=== PATIENT | male | born 1965 | race Caucasian/White ===

== ENCOUNTER → 2017-11-12 | Day surgery (SDC) | payer OTHER ==
[~2017-11-12] MED LIST: LIDOCAINE 1% PF 2 ML VIAL. ID; LIDOCAINE 2% 100 MG/5 ML SYRINGE.; MIDAZOLAM HCL/PF 2 MG/2 ML VIAL. IV; PROPOFOL 0 ML IV; PROPOFOL 20 ML IV; fentaNYL PF VIAL 100 MCG/2 ML VIAL IV
[2017-11-12] MEDS: IV RINGERS,LACTATED 1000ML 1,000 ML IV (09:53)
== END | disposition home or self-care (01) ==
LOC: SURG 09:02
DX: K21.0 Gastro-esophageal reflux disease with esophagitis (principal); K44.9 Diaphragmatic hernia without obstruction or gangrene; K29.50 Unspecified chronic gastritis without bleeding
CPT/HCPCS: 43239; 88305; J2704

== ENCOUNTER 2018-05-11 07:14 | Inpatient (IN) | payer OTHER ==
[~2018-05-11] VITALS: Ht 193 cm; Wt 117.9 kg
[2018-05-11] VITALS (8 sets, daily range): BP systolic 148–166; BP diastolic 75–99
[~2018-05-11 07:14] MED LIST changes: +BUPIVAC MPF-EPI 0.5%-1:200000 30 ML VIAL. ONE; +HYDROmorphone 2 MG/ML VIAL IV PRN; -LIDOCAINE 1% PF 2 ML VIAL. ID; +LIDOCAINE 1% PF 2 ML VIAL. ID PRN; -LIDOCAINE 2% 100 MG/5 ML SYRINGE.; -MIDAZOLAM HCL/PF 2 MG/2 ML VIAL. IV; +ONDANSETRON PF 4 MG/2 ML VIAL. IV PRN; +PANT20TA2 PO; +PROCHLORPERAZINE 10 MG/2 ML VIAL. IV PRN; -PROPOFOL 0 ML IV; -PROPOFOL 20 ML IV; +SURGICEL HEMOSTAT 4X8 EACH. ONE; -fentaNYL PF VIAL 100 MCG/2 ML VIAL IV; +fentaNYL PF VIAL 100 MCG/2 ML VIAL IV PRN
[2018-05-11] MEDS ORDERED: fentaNYL PF VIAL 100 MCG/2 ML VIAL ONE ×2 (07:45→09:06)
[2018-05-11] MEDS ORDERED: ROCURONIUM 50 MG/5 ML VIAL. ONE ×2 (07:45→09:06)
[2018-05-11] MEDS ORDERED: SUCCINYLCHOLINE 200 MG/10 ML VIAL. ONE (07:45)
[2018-05-11] MEDS ORDERED: PROPOFOL 0 ML IV ONE (07:45)
[2018-05-11] MEDS: IV RINGERS,LACTATED 1000ML 1,000 ML IV SCH ×2 (07:56→12:08)
[2018-05-11] MEDS ORDERED: DEXAMETHASONE SOD PHOS 20 MG/5 ML VIAL. ONE (08:30)
[2018-05-11] MEDS ORDERED: DESFLURANE > 120 MINUTES IH ONE (08:30)
[2018-05-11] MEDS ORDERED: PROPOFOL 40 ML IV ONE (09:05)
[2018-05-11] MEDS ORDERED: ONDANSETRON PF 4 MG/2 ML VIAL. ONE (09:43)
[2018-05-11] MEDS ORDERED: GLYCOPYRROLATE 1 MG/5 ML VIAL. ONE (09:44)
[2018-05-11] MEDS ORDERED: NEOSTIGMINE METHYLSULFATE 5 MG/5 ML SYRINGE. ONE (09:44)
[2018-05-11] MEDS ORDERED: KETOROLAC 30 MG/ML INJ FOR OR. INJ ONE (11:24)
[2018-05-11] MEDS ORDERED: 0.9 % SODIUM CHLORIDE 10 ML DISP.SYRIN. IV PRN (12:00)
[2018-05-11] MEDS ORDERED: ONDANSETRON PF 4 MG/2 ML VIAL. IV PRN (12:00)
[2018-05-11] MEDS ORDERED: MORPHINE SULFATE 2 MG/ML VIAL. IV PRN ×5 (12:00→12:15)
--- NOTE | 2018-05-11 12:17 | PDOC4 ---
Operative Note Operative Note Operative Note Preoperative Diagnosis: Gastroesophageal reflux disease Postoperative Diagnosis: Gastroesophageal reflux disease, hiatal hernia Procedure: Laparoscopic Cory fundoplication with repair of hiatal hernia Surgeon: Jamel León.: Dr. Frost Anesthesia: Gen. Estimated Blood Loss: 20 mL Specimen: None Drains: None Complications: None Indications: The patient is a 52-year-old male who was referred with worsening symptomatic gastroesophageal reflux disease. He was referred for consideration of a surgical antireflux procedure. I discussed with him in detail a laparoscopic Cory fundoplication. The risks of surgery were discussed which include bleeding, infection, recurrent herniation, gastric or esophageal perforation, visceral injury, recurrent reflux, gas bloat syndrome, dysphasia, potential need for additional surgeries or procedures. She understands and would like to proceed. Description: The patient was taken to the operating room and placed supine on the operating table. General anesthesia was performed. The patient was then placed in lithotomy. The abdomen was prepped with ChloraPrep and draped in a standard surgical fashion. A small incision was made superior to and to the patient's left of the umbilicus through which a visualized 5 mm trocar was inserted. A pneumoperitoneum was then created and the laparoscope was introduced. In the right lateral abdomen a 12 mm trocar was inserted through which a soft fan retractor was used to elevate the left lobe of the liver. In the right upper quadrant a 5 mm trocar was inserted. In the left upper quadrant an 11 mm trocar was inserted while in the left lateral abdomen a 5 mm trocar was inserted. Attention was then directed to the diaphragmatic hiatus. There was a small hiatal hernia present. The pars flaccida was opened and the avascular plane and the dissection continued to the level of the diaphragm. The Harmonic scalpel assisted for much of this dissection. The right cindi was readily identified and we mobilized the border of the esophagus away from the cindi. We then continued this dissection anteriorly freeing up all attachments in this location. The dissection then continued along the left cindi and the sac and attachments were mobilized here as well. The gastrocolic omentum was then opened with the Harmonic scalpel in the upper portion of the greater curvature. We then freed up the upper part of the greater curvature and fundus using the harmonic scalpel. Large blood vessels were doubly clipped and divided. The dissection continued all the way back up to the left cindi and any remaining splenic attachments were also mobilized. A [place] drain was then placed around the esophagus at the GE junction and clips were applied holding the [place] in place. With retraction on the Lb we were able to continue freeing up any remaining attachments particularly in the posterior location. At this point the GE junction was well within the abdominal cavity. The left and right cindi were then reapproximated with interrupted 2-0 silk sutures using the Endo Stitch device. The fundus was then wrapped around in a 360 fashion creating the fundoplication. A shoeshine maneuver was used to ensure no twists or kinks. An initial 2-0 Ethibond suture was used securing the fundic lips together. Another suture was placed superior to this which incorporated a small bite of the anterior esophagus. An additional suture was then placed inferiorly completing the fundoplication. At this point hemostasis was good and the fundoplication was intact with a nice orientation. The 11 and 12 mm trochars were then removed and the fascia closed with 0 Vicryl using an Endo Close. The remaining ports were removed and the pneumoperitoneum was relieved. Skin at all incisions was closed with 4-0 Monocryl. Steri-Strips and dressings were applied. The patient tolerated the procedure well. EMILY ALCANTARA MD May 11, 2018 12:17
[2018-05-11] MEDS: fentaNYL PF VIAL 100 MCG/2 ML VIAL IV PRN ×2 (12:20→12:43)
[2018-05-11] MEDS: MORPHINE SULFATE 2 MG/ML VIAL. IV PRN ×2 (12:21→13:02)
[2018-05-11] MEDS: POTASSIUM CL 20MEQ-0.45% NACL 1,000 ML IV SCH ×2 (17:19→22:41)
[2018-05-11] MEDS: MORPHINE SULFATE 4 MG/ML VIAL. IV PRN ×2 (17:20→20:23)
[2018-05-12] MEDS: MORPHINE SULFATE 4 MG/ML VIAL. IV PRN (00:17)
[2018-05-12 03:00] VITALS: BP 129/72
[2018-05-12] MEDS: POTASSIUM CL 20MEQ-0.45% NACL 1,000 ML IV SCH (03:00)
[2018-05-12 07:15] VITALS: BP 131/76
[2018-05-12] MEDS ORDERED: HYDROcodon/APAP 7.5/325MG ORAL 15 ML SOLUTION PO PRN (08:00)
[2018-05-12 11:00] VITALS: BP_SYST 110; BP_SYST 126; BP_DIAS 65; BP_DIAS 72
--- NOTE | 2018-05-12 11:14 | PDOC ---
PROGRESS NOTES Subjective Subjective doing well, home liquids earlier this am, no dysphagia, no reflux present Objective Objective Vital Signs Date Time Temp Pulse Resp B/P (MAP) Pulse Ox O2 Delivery O2 Flow Rate FiO2 05/12/18 08:00 Room Air 05/12/18 07:15 97.9 72 18 131/76 (94) 95 97.9 05/11/18 14:45 2.0 Intake and Output 05/12/18 07:00 Intake Total 2889 ml Output Total 320 ml Balance 2569 ml IV Total 2889 ml Output Urine Total 300 ml Estimated Blood Loss 20 ml # Voids 4 Physical Exam Abdomen: Soft, No tenderness Assessment Assessment POD 1 lap gladys Plan Plan of Care doing well, advance to full liquids, hoping to go home Comment Review of Relevant I have reviewed the following items stefanie (where applicable) has been applied. Medications Current Medications Ondansetron HCl (Zofran) 4 mg PRN Q6HRS PRN IV NAUSEA/VOMITING; Start 05/11/18 at 07:00; Stop 05/12/18 at 06:59; Status DC Fentanyl Citrate (Fentanyl 2ml Vial) 25 mcg PRN Q5MIN PRN IV MILD PAIN; Start 05/11/18 at 07:00; Stop 05/12/18 at 06:59; Status DC Fentanyl Citrate (Fentanyl 2ml Vial) 50 mcg PRN Q5MIN PRN IV MODERATE TO SEVERE PAIN Last administered on 05/11/18at 12:43; Start 05/11/18 at 07:00; Stop 05/12/18 at 06:59; Status DC Morphine Sulfate (Morphine Sulfate) 1 mg PRN Q10MIN PRN IV SEVERE PAIN Last administered on 05/11/18at 13:02; Start 05/11/18 at 07:00; Stop 05/12/18 at 06:59 ; Status DC Ringer's Solution 1,000 ml @ 30 mls/hr Q24H IV Last administered on 05/11/18at 12:08; Start 05/11/18 at 07:00; Stop 05/11/18 at 18:59; Status DC Lidocaine HCl (Xylocaine-Mpf 1% 2ml Vial) 2 ml PRN 1X PRN ID IV START; Start 05/11/18 at 07:00; Stop 05/12/18 at 06:59; Status DC Hydromorphone HCl (Dilaudid) 0.5 mg PRN Q10MIN PRN IV SEV PAIN, Second choice; Start 05/11/18 at 07:00; Stop 05/12/18 at 06:59; Status DC Prochlorperazine Edisylate (Compazine) 5 mg PACU PRN PRN IV NAUSEA, MRX1 Last administered on 05/11/18at 12:17; Start 05/11/18 at 07:00; Stop 05/12/18 at 06:59 ; Status DC Cefazolin Sodium/ Dextrose 50 ml @ 100 mls/hr 1X ONCE IV Last administered on 05/11/18at 08:39; Start 05/11/18 at 06:00; Stop 05/11/18 at 06:29; Status DC Bupivacaine HCl/ Epinephrine Bitart (Sensorcain-Mpf Epi 0.5%-1:[id number]) 30 ml STK -MED ONCE .ROUTE Last administered on 05/11/18at 09:12; Start 05/11/18 at 06:22 ; Stop 05/11/18 at 07:23; Status DC Cellulose (Surgicel Hemostat 4x8) 1 each STK-MED ONCE .ROUTE ; Start 05/11/18 at 06:22; Stop 05/11/18 at 07:23; Status DC Cellulose (Surgicel Hemostat 4x8) 1 each STK-MED ONCE .ROUTE ; Start 05/11/18 at 06:22; Stop 05/11/18 at 07:23; Status DC Propofol 0 ml @ As Directed STK-MED ONCE IV ; Start 05/11/18 at 07:45; Stop 05/11/18 at 07:46; Status DC Fentanyl Citrate (Fentanyl 2ml Vial) 100 mcg STK-MED ONCE .ROUTE ; Start at 07:45; Stop 05/11/18 at 07:46; Status DC Succinylcholine Chloride (Anectine) 200 mg STK-MED ONCE .ROUTE ; Start 05/11/18 at 07:45; Stop 05/11/18 at 07:47; Status DC Rocuronium [place] (Zemuron) 50 mg STK-MED ONCE .ROUTE ; Start 05/11/18 at 07:45 ; Stop 05/11/18 at 07:47; Status DC Dexamethasone Sodium Phosphate (Decadron) 20 mg STK-MED ONCE .ROUTE ; Start 05/11/18 at 08:30; Stop 05/11/18 at 08:32; Status DC Desflurane (Suprane) 90 ml STK-MED ONCE IH ; Start 05/11/18 at 08:30; Stop 05/11 at 08:32; Status DC Propofol 40 ml @ As Directed STK-MED ONCE IV ; Start 05/11/18 at 09:05; Stop at 09:06; Status DC Fentanyl Citrate (Fentanyl 2ml Vial) 100 mcg STK-MED ONCE .ROUTE ; Start at 09:06; Stop 05/11/18 at 09:07; Status DC Rocuronium [place] (Zemuron) 50 mg STK-MED ONCE .ROUTE ; Start 05/11/18 at 09:06 ; Stop 05/11/18 at 09:07; Status DC Ondansetron HCl (Zofran) 4 mg STK-MED ONCE .ROUTE ; Start 05/11/18 at 09:43; Stop 05/11/18 at 09:45; Status DC Glycopyrrolate (Robinul) 1 mg STK-MED ONCE .ROUTE ; Start 05/11/18 at 09:44; Stop 05/11/18 at 09:45; Status DC Neostigmine Methylsulfate (Neostigmine Methylsulfate) 5 mg STK-MED ONCE .ROUTE ; Start 05/11/18 at 09:44; Stop 05/11/18 at 09:45; Status DC Ketorolac Tromethamine (Toradol For Or Only) 30 mg STK-MED ONCE INJ ; Start 05/11/18 at 11:24; Stop 05/11/18 at 11:25; Status DC Sodium Chloride (Normal Saline Flush) 3 ml QSHIFT PRN IV AFTER MEDS AND BLOOD DRAWS; Start 05/11/18 at 12:00 Potassium Chloride/Sodium Chloride 1,000 ml @ 100 mls/hr Q10H IV Last administered on 05/12/18at 03:00; Start 05/11/18 at 11:49 Morphine Sulfate (Morphine Sulfate) 1 mg PRN Q3HRS PRN IV PAIN, SEE COMMENTS; Start 05/11/18 at 12:00 Ondansetron HCl (Zofran) 4 mg PRN Q6HRS PRN IV NAUESA, 1ST CHOICE; Start at 12:00 Morphine Sulfate (Morphine Sulfate) 2 mg PRN Q3HRS PRN IV PAIN, SEE COMMENTS Last administered on 05/11/18at 14:15; Start 05/11/18 at 12:15 Morphine Sulfate (Morphine Sulfate) 3 mg PRN Q3HRS PRN IV PAIN, SEE COMMENTS; Start 05/11/18 at 12:15 Morphine Sulfate (Morphine Sulfate) 4 mg PRN Q3HRS PRN IV PAIN, SEE COMMENTS; Start 05/11/18 at 12:15; Stop 05/11/18 at 12:15; Status DC Morphine Sulfate (Morphine Sulfate) 5 mg PRN Q3HRS PRN IV PAIN, SEE COMMENTS; Start 05/11/18 at 12:15 Morphine Sulfate (Morphine Sulfate) 4 mg PRN Q3HRS PRN IV PAIN, SEE COMMENTS Last administered on 05/12/18at 00:17; Start 05/11/18 at 12:15 Acetaminophen/ Hydrocodone Bitart (Lortab 7.5-325/ 15ml Oral Solution) 15 ml PRN Q4HRS PRN PO MODERATE PAIN; Start 05/12/18 at 08:00 Active Scripts Active Reported Protonix (Pantoprazole Sodium) 20 Mg Tablet.dr 20 Mg PO DAILY Vitals/I & O Vital Sign - Last 24 Hours 05/11/18 05/11/18 05/11/18 05/11/18 11:55 12:10 12:20 12:21 Temp 98.2 98.2 Pulse 84 82 Resp 20 20 20 20 B/P (MAP) 155/94 168/77 Pulse Ox 100 97 99 O2 Delivery Simple Mask Simple Mask Simple Mask Simple Mask O2 Flow Rate 10 10 10.0 10.0 05/11/18 05/11/18 05/11/18 05/11/18 12:25 12:35 12:40 12:43 Pulse 76 77 Resp 20 20 20 B/P (MAP) 163/80 178/83 Pulse Ox 100 98 O2 Delivery Simple Mask Nasal Cannula Nasal Cannula Nasal Cannula O2 Flow Rate 10 2 2 2.0 05/11/18 05/11/18 05/11/18 05/11/18 12:55 13:02 13:15 13:30 Temp 97.4 97.4 Pulse 78 73 73 Resp 20 20 B/P (MAP) 151/85 150/75 (100) 166/91 (116) Pulse Ox 98 95 98 98 O2 Delivery Nasal Cannula Nasal Cannula Room Air Room Air O2 Flow Rate 2 2.0 05/11/18 05/11/18 05/11/18 05/11/18 13:35 13:45 14:00 14:00 Pulse 81 81 Resp 17 B/P (MAP) 155/88 (110) 150/86 (107) Pulse Ox 98 98 98 O2 Delivery Nasal Cannula Room Air Nasal Cannula Room Air O2 Flow Rate 2.0 2.0 05/11/18 05/11/18 05/11/18 05/11/18 14:15 14:30 14:45 15:00 Temp 97.9 97.9 Pulse 85 79 Resp 17 17 18 B/P (MAP) 161/99 (119) 161/99 (119) Pulse Ox 98 98 98 98 O2 Delivery Nasal Cannula Nasal Cannula Room Air O2 Flow Rate 2.0 2.0 05/11/18 05/11/18 05/11/18 05/11/18 17:20 18:00 19:00 19:45 Temp 97.9 97.9 Pulse 75 Resp 17 17 18 B/P (MAP) 152/88 (109) Pulse Ox 98 98 97 O2 Delivery Room Air Room Air Room Air 05/11/18 05/11/18 05/12/18 05/12/18 20:23 23:00 00:17 00:47 Temp 98.6 98.6 Pulse 81 Resp 18 B/P (MAP) 148/86 (106) Pulse Ox 95 O2 Delivery Room Air Room Air Room Air Room Air 05/12/18 05/12/18 05/12/18 03:00 07:15 08:00 Temp 98.6 97.9 98.6 97.9 Pulse 59 72 Resp 18 18 B/P (MAP) 129/72 (91) 131/76 (94) Pulse Ox 96 95 O2 Delivery Room Air Room Air Room Air Intake and Output 05/11/18 05/11/18 05/12/18 15:00 23:00 07:00 Intake Total 1650 ml 1239 ml Output Total 320 ml Balance 1330 ml 1239 ml EMILY ALCANTARA MD May 12, 2018 11:14
--- NOTE | 2018-05-12 11:16 | DISCH ---
DISCHARGE INSTRUCTIONS Condition on Discharge Condition on Discharge: Stable Activity After Discharge Activity Instructions for Disc: Other, see below (no lifting over 20 lbs X 2 weeks) Diet after Discharge Diet after Discharge: Full Liquid Wound Incision Care Wound/Incision Care: Other, see below (may remove bandaids and shower) Follow-Up Follow up with: Dr Alcantara in 2 weeks in office, call for appt [phone] EMILY ALCANTARA MD May 12, 2018 11:16
--- NOTE | 2018-05-12 11:17 | PDOC3 ---
Discharge Summary Visit Information Date of Admission: May 11, 2018 Date of Discharge: May 12, 2018 Admitting Diagnosis: GERD Brief Hospital Course Allergies Allergies Coded Allergies Type Severity Reaction Last Updated Verified No Known Drug Allergies 05/11/18 No Vital Signs Vital Signs Date Time Temp Pulse Resp B/P (MAP) Pulse Ox O2 Delivery O2 Flow Rate FiO2 05/12/18 08:00 Room Air 05/12/18 07:15 97.9 72 18 131/76 (94) 95 97.9 05/11/18 14:45 2.0 Brief Hospital Course Mr. Ghosh is a 52 old male who presented with gastroesophageal reflux disease. He underwent a laparoscopic Cory fundoplication and his recovery was uneventful. Discharge Information Follow Up: Weeks (2 weeks) Disposition/Orders: D/C to Home Scheduled Pantoprazole Sodium (Protonix) 20 Mg Tablet., 20 MG PO DAILY, (Reported) Entered as Reported by: SHARON BRYANT on 11/12/17 0957 Last Taken: Unknown Dose on 05/11/18 0600 Last Action: Reviewed on [id number] by EMILY DILLON MD May 12, 2018 11:17
[2018-05-12 15:00] VITALS: BP 129/76
[2018-05-12] MEDS ORDERED: HYDR15SO4 PO (16:52)
== END 2018-05-12 19:03 | disposition home or self-care (01) | DRG 328 ==
LOC: SURG 07:14 → 4 NORTH 12:29
PROVIDERS: ADMIT Surgery; ATTEND Surgery
PROC: 0BQT4ZZ Repair Diaphragm, Percutaneous Endoscopic Approach (ICD-10-PCS; 2018-05-11)
PROC: 0DV44ZZ Restriction of Esophagogastric Junction, Percutaneous Endoscopic Approach (ICD-10-PCS; principal; 2018-05-11 08:30)
DX: K21.9 Gastro-esophageal reflux disease without esophagitis (principal); K44.9 Diaphragmatic hernia without obstruction or gangrene
CPT/HCPCS: A7015; J0330; J0690; J0780; J1100; J1885; J2270; J2405; J2704; J2710; J3010; J3490; J7030; J7120